=== PATIENT | female | born 1970 | race Caucasian/White ===

== ENCOUNTER → 2018-07-21 | Outpatient (CLI) | payer BC ==
[~2018-07-21] MED LIST: ACET1TAB33 PO; CYCL10TA2 PO; DILT120C85 PO; DOCU100C28 PO; DULO60CA6 PO; FLEC50TA PO; HYDROmorphone 2 MG/ML VIAL IV PRN; IV RINGERS,LACTATED 1000ML 1,000 ML IV SCH; KETAMINE HCL IN NACL, ISO-OSM 50 MG/5 ML SYRINGE ONE; LIDOCAINE 1% PF 2 ML VIAL. ID PRN; LIDOCAINE 2% PF 5 ML VIAL. ONE; LORA10TA3 PO; LUBI24CA7 PO; MELO15TA23 PO; MIDAZOLAM HCL/PF 2 MG/2 ML VIAL. ONE; MORPHINE SULFATE 2 MG/ML VIAL. IV PRN; OMEP20TA63 PO; PANT20TA2 PO; PROCHLORPERAZINE 10 MG/2 ML VIAL. IV PRN; PROPOFOL 60 ML IV ONE; SULF-143 PO; TRAM50TA PO; WARF6TAB49 PO; fentaNYL PF VIAL 100 MCG/2 ML VIAL IV PRN; fentaNYL PF VIAL 100 MCG/2 ML VIAL ONE
[2018-07-21 14:50] VITALS: BP 126/66
--- NOTE | 2018-07-21 15:06 | RAD ---
EXAM: MRI LEFT KNEE DATE: 07/21/2018 1:00 PM CLINICAL INDICATION: Progressive medial left knee pain, chronic. Associated left knee instability. COMPARISON: None. TECHNIQUE: Multiplanar, multisequence MRI of the left knee was performed without contrast. FINDINGS: Exam is markedly limited given marked motion artifact despite patient sedation. Within these constraints: Small left knee joint effusion. Small Jeff's cyst. The ACL and PCL are grossly intact. In general, the MCL, fibular collateral ligament, biceps femoris and IT band are intact. Mild lateral patellar tracking. Trochlear dysplasia. Extensor mechanism is intact. The menisci cannot be accurately assessed given marked motion artifact. IMPRESSION: 1. The exam is markedly limited given extensive motion artifact despite patient sedation. 2. Menisci cannot be accurately assessed. 3. Small left knee joint effusion. Small Jeff's cyst. 4. MCL is grossly intact. 5. 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 Electronically signed by: Jorge Truong MD (07/21/2018 3:04 PM) [id number]
== END | disposition home or self-care (01) ==
LOC: SURG 12:28
PROVIDERS: ATTEND Nurse Practitioner Family
DX: M25.462 Effusion, left knee (principal); M71.22 Synovial cyst of popliteal space [Baker], left knee
CPT/HCPCS: 73721; J2001; J2250; J2704; J3010